=== PATIENT | female | born 1965 | race Caucasian/White ===

== ENCOUNTER 2017-03-15 14:37 | Inpatient (IN) | payer BC ==
[2017-03-15] VITALS (8 sets, daily range): BP systolic 117–147; BP diastolic 65–80
[~2017-03-15] VITALS: Ht 167.6 cm; Wt 54.8 kg
[2017-03-15 15:46] LABS: EOSINOPHIL (%) 0.8 % (0-5); HEMATOCRIT 17.8 % (36.0-46.0); IMMATURE GRANULOCYTE (%) 0.8 % (0.0-0.7); INSTRUMENT ABS NEUTROPHIL CT 2.3 K/uL; LYMPHOCYTE COUNT 1.1 K/uL (1.0-2.8); MCH 15.8 PG (29.0-34.0); MCHC 24.7 G/DL (30.0-36.0); MCV 63.8 FL (83-99); MEAN PLAT.VOLUME 9.8 uM^3 (9.5-12.4); MONOCYTE (%) 8.7 % (3-12); MONOCYTE COUNT 0.3 K/uL (0-0.8); NEUTROPHIL (%) 59.9 % (45-76); NEUTROPHIL COUNT 2.3 K/uL (1.8-6.4); PLATELET COUNT 392 K/uL (156-360); RBC DIS.WIDTH-CV 19.9 % (11.8-14.6); RED BLOOD COUNT 2.79 M/uL (3.80-5.20); WHITE BLOOD COUNT 3.8 K/uL (4.1-10.2)
[2017-03-15 15:55] LABS: CHLORIDE 111 mEq/L (99-109); POTASSIUM 3.5 mEq/L (3.7-5.4); SODIUM 140 mEq/L (136-147)
[2017-03-15 15:57] LABS: GLUCOSE 121 mg/dL (70-99)
[2017-03-15 15:58] LABS: ANION GAP 8 MEQ/L (2-14)
[2017-03-15 15:59] LABS: TOTAL BILIRUBIN 0.4 mg/dL (0.0-1.0)
[2017-03-15 16:01] LABS: ALKALINE PHOSPHATASE 58 IU/L (3-129); GFR ESTIMATE (CALCULATED) > 59 mL/min/
[2017-03-15 16:02] LABS: INTER. NORMALIZED RATIO 1.2; PROTHROMBIN TIME 11.9 (9.2-11.2); PTT 21.6 (25-32); UREA NITROGEN (BUN) 13 mg/dL (9-23)
[2017-03-15] MEDS ORDERED: HYDROCHLOROTH12.5 M3 PO (16:22)
[2017-03-15 16:31] LABS: IRON 22 MCG/DL (35-150); SAMPLE HEMOLYSIS CHECK 0; SAMPLE ICTERIC CHECK 0; SAMPLE LIPEMIA CHECK 0
[2017-03-15 16:42] LABS: IMM.RETIC FRACTION 16.7 % (3-19); RETIC HGB EQUIVALENT 12.9 (28-36); RETICULOCYTE COUNT 1.2 % (0.5-1.8)
[2017-03-15 17:25] LABS: FERRITIN 1 NG/ML (10-291)
[2017-03-16] VITALS (7 sets, daily range): BP systolic 110–121; BP diastolic 55–72
[2017-03-16 04:58] LABS: HEMATOCRIT 25.5 % (36.0-46.0); MCHC 28.6 G/DL (30.0-36.0); MEAN PLAT.VOLUME 9.8 uM^3 (9.5-12.4); PLATELET COUNT 362 K/uL (156-360); RBC DIS.WIDTH-CV 24.2 % (11.8-14.6); RBC DIS.WIDTH-SD 60.2 % (39-53)
[2017-03-16 04:59] LABS: RED BLOOD COUNT 3.61 M/uL (3.80-5.20); WHITE BLOOD COUNT 5.5 K/uL (4.1-10.2)
[2017-03-16 05:00] LABS: MCH 20.2 PG (29.0-34.0); MCV 70.6 FL (83-99)
[2017-03-16 07:05] LABS: HEMATOCRIT 25.1 % (36.0-46.0); MCH 20.4 PG (29.0-34.0); MCHC 28.7 G/DL (30.0-36.0); MCV 71.1 FL (83-99); MEAN PLAT.VOLUME 9.9 uM^3 (9.5-12.4); PLATELET COUNT 327 K/uL (156-360); RBC DIS.WIDTH-CV 24.1 % (11.8-14.6); RBC DIS.WIDTH-SD 60.6 % (39-53); RED BLOOD COUNT 3.53 M/uL (3.80-5.20); WHITE BLOOD COUNT 4.6 K/uL (4.1-10.2)
[2017-03-17] VITALS: BP 101/52
[2017-03-17 04:30] VITALS: BP 98/54
[2017-03-17 06:45] LABS: HEMATOCRIT 26.6 % (36.0-46.0); MCV 71.7 FL (83-99)
[2017-03-17 08:55] VITALS: BP 110/59
[2017-03-17 12:04] VITALS: BP 105/56
[2017-03-17 12:08] VITALS: BP 105/56
== END 2017-03-17 13:35 | disposition home or self-care (01) | DRG 378 ==
LOC: EME 14:37 → 5WEST 16:00 → 4EAST 16:00 → EDOF 16:00 → 4EAST 19:11
PROVIDERS: Emergency Medicine; Internal Medicine; Student in an Organized Health Care Education/Training Program
PROC: 30233N1 Transfusion of Nonautologous Red Blood Cells into Peripheral Vein, Percutaneous Approach (ICD-10-PCS; principal; 2017-03-15)
DX: K92.2 Gastrointestinal hemorrhage, unspecified (principal); D62 Acute posthemorrhagic anemia; Z68.1 Body mass index [BMI] 19.9 or less, adult; D50.9 Iron deficiency anemia, unspecified; D75.9 Disease of blood and blood-forming organs, unspecified; R63.6 Underweight; Z80.0 Family history of malignant neoplasm of digestive organs
CPT/HCPCS: 74177; 80053; 82272; 82607; 82728; 82747 90; 83010 90; 83540; 84466; 84484; 85014; 85018; 85025; 85027; 85045; 85610; 85730; 86900; 86901; 86920; 99281; 99285; G0378; J1940; J7040; J7050; P9016; Q0138